=== PATIENT | male | born 1965 | race Caucasian/White ===

== ENCOUNTER 2018-05-10 12:36 | Inpatient (IN) | payer MEDICARE, OTHER ==
[2018-05-10 15:52] LABS: ADD MAN DIFF? NO
[2018-05-10 15:56] LABS: WHITE BLOOD COUNT 13.9 10^3/ul (4.8-10.8)
[2018-05-10 15:56] LABS: BASOPHIL # 0.1 10^3/ul (0.0-0.1); BASOPHILS % 0.4 % (0.0-2.0); EOSINOPHILS # 0.1 10^3/ul (0.0-0.5); EOSINOPHILS % 0.5 % (0.0-7.0); HEMATOCRIT 34.1 % (42.0-52.0); HEMOGLOBIN 11.3 g/dl (14.0-18.0); LYMPHOCYTES # 0.9 10^3/ul (0.8-2.9); LYMPHOCYTES % 6.7 % (15.0-51.0); MEAN CORPUSCULAR HEMOGLOBIN 29.7 pg (29.0-33.0); MEAN CORPUSCULAR HGB CONC 33.1 g/dl (32.0-37.0); MEAN CORPUSCULAR VOLUME 89.7 fl (82.0-101.0); MONOCYTE # 1.1 10^3/ul (0.3-0.9); MONOCYTES % 8.1 % (0.0-11.0); NEUTROPHIL # 11.7 10^3/ul (1.6-7.5); NEUTROPHILS % 83.7 % (39.0-77.0); PLATELET COUNT 200 10^3/UL (140-415); RED CELL DISTRIBUTION WIDTH 13.1 % (11.5-14.5)
[2018-05-10] MEDS ORDERED: VANCOMYCIN 1 GM (PMX) 250 ML IVPB (16:00)
[2018-05-10 16:16] LABS: ALANINE AMINOTRANSFERASE 17 IU/L (13-69); ALBUMIN 4.7 g/dl (3.3-4.9); ALBUMIN/GLOBULIN RATIO 1.14; ALKALINE PHOSPHATASE 145 IU/L (42-121); ANION GAP 25 (8-16); ASPARTATE AMINO TRANSFERASE < 8 IU/L (15-46); BILIRUBIN,INDIRECT 0.2 mg/dl (0-1.1); BILIRUBIN,TOTAL 0.2 mg/dl (0.2-1.3); BLOOD UREA NITROGEN 62 mg/dl (7-20); CALCIUM 9.1 mg/dl (8.4-10.2); CARBON DIOXIDE 26 mmol/L (21-31); CHLORIDE 92 mmol/L (97-110); CREATININE 9.64 mg/dl (0.61-1.24); GLUCOSE 165 mg/dl (70-220); INR 1.09; PROTIME 14.2 Sec (11.9-14.9); PT RATIO 1.1; SODIUM 137 mmol/L (135-144); TOTAL PROTEIN 8.8 g/dl (6.1-8.1)
[2018-05-10 16:17] LABS: PARTIAL THROMBOPLASTIN TIME 27.6 Sec (25.0-35.0)
[2018-05-10 16:29] LABS: C-REACTIVE PROTEIN 17.6 mg/dl (0.0-0.9)
[2018-05-10] MEDS ORDERED: ONDANSETRON 4 MG INJ IV (16:30)
[2018-05-10] MEDS ORDERED: ACETAMINOPHEN 325 MG TAB PO ×2 (16:30→17:00)
[2018-05-10] MEDS ORDERED: CEFEPIME 1GM/50 ML (PMX) 50 ML IVPB (17:00)
[2018-05-10] MEDS ORDERED: NACL 0.9% 3 ML SYG IV (17:00)
[2018-05-10] MEDS ORDERED: VANCOMYCIN IV PER PHARMACY XX (17:00)
[2018-05-10] MEDS ORDERED: HYDROmorphONE 0.5 MG/0.5 ML SYG IV (17:00)
[2018-05-10] MEDS ORDERED: GLUCAGON 1 MG INJ IM (17:30)
[2018-05-10] MEDS ORDERED: GLUCOSE GEL 15 GRAM TUBE BUCCAL (17:30)
[2018-05-10] MEDS ORDERED: DEXTROSE 50% 50 ML SYRINGE IV ×2 (17:30)
[2018-05-10] MEDS ORDERED: GLUCOSE GEL 15 GRAM TUBE PO ×2 (17:30)
[2018-05-10] MEDS: INSULIN ASPART [NOVOLOG] 3 ML PEN SC ×3 (18:00→21:00)
[2018-05-10] MEDS: CEFEPIME 2GM/50 ML (PMX) 50 ML IVPB (18:12)
[2018-05-10] MEDS: VANCOMYCIN 2 GM in SOD CHLORIDE 0.9% 500 ML IVPB (18:12)
[2018-05-10] MEDS: NA POLYST SULFON 15 GM/60 ML BTL PO (18:17)
[2018-05-10] MEDS: CALCIUM ACETATE 667 MG CAP PO (19:01)
[2018-05-10 19:02] LABS: ERYTHROCYTE SEDIMENTATION RATE 60 mm/Hr (0-20)
[2018-05-10] MEDS: DIPHENHYDRAMINE 50 MG INJ IV (19:03)
[2018-05-10 20:07] LABS: HEMOGLOBIN A1C 7.3 % (0-5.9)
[2018-05-10] MEDS: INSULIN GLARGINE [LANtus] 3 ML PEN SC (21:01)
[2018-05-10] MEDS: FAMOTIDINE 20 MG TAB PO (21:59)
[2018-05-10] MEDS: MINOXIDIL 2.5 MG TAB PO (22:03)
[2018-05-10 23:06] LABS: LACTIC ACID 0.8 mmol/L (0.5-2.0)
[2018-05-11 06:22] LABS: ADD MAN DIFF? NO
[2018-05-11 06:31] LABS: WHITE BLOOD COUNT 9.9 10^3/ul (4.8-10.8)
[2018-05-11 06:31] LABS: BASOPHIL # 0.1 10^3/ul (0.0-0.1); BASOPHILS % 0.6 % (0.0-2.0); EOSINOPHILS # 0.1 10^3/ul (0.0-0.5); EOSINOPHILS % 1.1 % (0.0-7.0); HEMATOCRIT 29.9 % (42.0-52.0); HEMOGLOBIN 9.9 g/dl (14.0-18.0); LYMPHOCYTES # 0.9 10^3/ul (0.8-2.9); LYMPHOCYTES % 8.8 % (15.0-51.0); MEAN CORPUSCULAR HEMOGLOBIN 29.8 pg (29.0-33.0); MEAN CORPUSCULAR HGB CONC 33.1 g/dl (32.0-37.0); MEAN CORPUSCULAR VOLUME 90.1 fl (82.0-101.0); MEAN PLATELET VOLUME 12.8 fl (7.4-10.4); MONOCYTES % 10.3 % (0.0-11.0); NEUTROPHIL # 7.8 10^3/ul (1.6-7.5); NEUTROPHILS % 78.9 % (39.0-77.0); PLATELET COUNT 179 10^3/UL (140-415); RED BLOOD COUNT 3.32 10^6/ul (4.70-6.10)
[2018-05-11 06:52] LABS: ANION GAP 24 (8-16); BLOOD UREA NITROGEN 74 mg/dl (7-20); CALCIUM 8.7 mg/dl (8.4-10.2); CARBON DIOXIDE 25 mmol/L (21-31); CHLORIDE 95 mmol/L (97-110); CREATININE 10.37 mg/dl (0.61-1.24); GLUCOSE 115 mg/dl (70-220); SODIUM 139 mmol/L (135-144)
[2018-05-11 06:54] LABS: CHOL/HDL RATIO 3.4 RATIO; CHOLESTEROL 125 mg/dl (100-200); HDL CHOLESTEROL 36 mg/dl (28-71); LDL CHOLESTEROL,CALCULATED 72 mg/dl; MAGNESIUM 2.9 mg/dl (1.7-2.5); TRIGLYCERIDES 86 mg/dl (0-149)
[2018-05-11 06:54] LABS: PHOSPHORUS 8.1 mg/dl (2.5-4.9)
[2018-05-11] MEDS ORDERED: ESMOLOL 100 MG INJ (07:00)
[2018-05-11] MEDS ORDERED: ALBUMIN HUMAN 5% 250 ML INJ (07:00)
[2018-05-11] MEDS ORDERED: ONDANSETRON 4 MG INJ (07:00)
[2018-05-11] MEDS ORDERED: METOPROLOL 5 MG INJ (07:00)
[2018-05-11] MEDS ORDERED: ALBUMIN HUMAN 25% 100 ML INJ (07:00)
[2018-05-11] MEDS ORDERED: CA CHLORIDE 10% 10 ML SYRINGE (07:00)
[2018-05-11 07:05] LABS: POTASSIUM 5.2 mmol/L (3.5-5.1)
[2018-05-11] MEDS: INSULIN ASPART [NOVOLOG] 3 ML PEN SC ×7 (07:35→21:00)
[2018-05-11] MEDS: CALCIUM ACETATE 667 MG CAP PO ×3 (07:35→17:35)
[2018-05-11] MEDS: METOPROLOL (XL) 50 MG TAB PO (08:49)
[2018-05-11] MEDS: MINOXIDIL 2.5 MG TAB PO ×2 (08:49→21:00)
[2018-05-11 10:51] LABS: HEPATITIS B SURFACE ANTIGEN NEGATIVE (NEGATIVE)
[2018-05-11 12:55] LABS: HEPATITIS B SURFACE ANTIBODY POSITIVE (NEGATIVE)
[2018-05-11] MEDS: hydrALAzine 20 MG INJ IV (14:04)
[2018-05-11] MEDS: CEFEPIME 1GM/50 ML (PMX) 50 ML IVPB (16:13)
[2018-05-11 17:51] LABS: ANION GAP 20 (8-16); BLOOD UREA NITROGEN 32 mg/dl (7-20); CALCIUM 8.9 mg/dl (8.4-10.2); CARBON DIOXIDE 26 mmol/L (21-31); CHLORIDE 99 mmol/L (97-110); CREATININE 6.33 mg/dl (0.61-1.24); GLUCOSE 87 mg/dl (70-220); POTASSIUM 4.2 mmol/L (3.5-5.1); SODIUM 141 mmol/L (135-144)
[2018-05-11] MEDS: INSULIN GLARGINE [LANtus] 3 ML PEN SC ×2 (20:00)
[2018-05-11] MEDS ORDERED: FENTAnyl 50 MCG/ML VIAL ×2 (20:27→21:07)
[2018-05-11] MEDS ORDERED: LIDOCAINE 2% (SDV) 5 ML INJ (20:28)
[2018-05-11] MEDS ORDERED: MIDAZOLAM 1 MG/ML 2 ML INJ ×2 (20:28→21:08)
[2018-05-11] MEDS ORDERED: LIDOCAINE 1% (MPF) 30 ML INJ (20:53)
[2018-05-11] MEDS ORDERED: BUPIVACAINE 0.25% (MPF) 30 ML INJ (20:53)
[2018-05-11] MEDS: FAMOTIDINE 20 MG TAB PO (21:00)
[2018-05-11] MEDS: FISH OIL 1,000 MG CAP PO (21:00)
[2018-05-11] MEDS ORDERED: PROPOFOL 20 ML (21:08)
[2018-05-11] MEDS ORDERED: METOCLOPRAMIDE 10 MG INJ (21:08)
[2018-05-11] MEDS ORDERED: CEFAZOLIN 1 GM INJ (21:08)
[2018-05-11] MEDS: POLYMYXIN/BACITRACIN 1L IRRIG (21:29)
[2018-05-11] MEDS ORDERED: ALBUMIN HUMAN 5% 250 ML (21:57)
[2018-05-11] MEDS ORDERED: PHENYLephrine 10 MG INJ (22:01)
[2018-05-11] MEDS ORDERED: PHENYLephrine (100 MCG/ML) 10ML SYG (22:21)
[2018-05-11] MEDS ORDERED: ALBUMIN HUMAN 5% 250 ML IV (22:30)
[2018-05-11] MEDS ORDERED: IPRATROPIUM (NEB) 0.5 MG/2.5 ML AMP HHN (22:30)
[2018-05-11] MEDS ORDERED: HYDROmorphONE 1 MG/5 ML IV SYRINGE IV ×2 (22:30)
[2018-05-11] MEDS ORDERED: FENTAnyl 50 MCG/ML VIAL IV ×2 (22:30)
[2018-05-11] MEDS ORDERED: DIPHENHYDRAMINE 50 MG INJ IV ×2 (22:30→23:30)
[2018-05-11] MEDS ORDERED: ONDANSETRON 4 MG INJ IV ×2 (22:30→23:30)
[2018-05-11] MEDS ORDERED: ALBUMIN HUMAN 25% 200 ML (22:35)
[2018-05-11] MEDS ORDERED: HYDROCODONE/APAP (5/325) TAB PO (23:30)
[2018-05-11] MEDS ORDERED: morphine 2 MG INJ IV (23:30)
[2018-05-11 23:32] LABS: CREATINE KINASE 82 IU/L (23-200)
[2018-05-11 23:46] LABS: CK INDEX 2.7; TROPONIN-I 0.031 ng/ml (0.000-0.120)
[2018-05-11 23:48] LABS: CK-MB 2.23 ng/ml (0.0-2.4)
[2018-05-11] MEDS: ALBUMIN HUMAN 5% 250 ML IV (23:52)
[2018-05-11] MEDS ORDERED: EPINEPHrine 0.1 MG/ML SYG (23:56)
[2018-05-12] MEDS: CALCIUM GLUCONATE 10% 1 GM in DEXTROSE 5% 100 ML IVPB (00:06)
[2018-05-12] MEDS ORDERED: NORepinephrine 8MG/250 ML (PMX 250 ML (00:16)
[2018-05-12] MEDS ORDERED: PHENYLephrine 20MG IN 250 ML 250 ML IV (00:30)
[2018-05-12] MEDS: SOD CHLORIDE 0.9% 1,000 ML IV ×2 (01:01→09:52)
[2018-05-12] MEDS: SOD CHLORIDE 0.9% 500 ML IV (01:01)
[2018-05-12] MEDS: NORepinephrine 8MG/250 ML (PMX 250 ML IV (02:00)
[2018-05-12 05:41] LABS: ADD MAN DIFF? NO
[2018-05-12 05:53] LABS: BASOPHIL # 0.1 10^3/ul (0.0-0.1); BASOPHILS % 0.6 % (0.0-2.0); EOSINOPHILS % 0.4 % (0.0-7.0); HEMATOCRIT 22.8 % (42.0-52.0); HEMOGLOBIN 7.4 g/dl (14.0-18.0); LYMPHOCYTES # 0.7 10^3/ul (0.8-2.9); LYMPHOCYTES % 7.3 % (15.0-51.0); MEAN CORPUSCULAR HEMOGLOBIN 30.3 pg (29.0-33.0); MEAN CORPUSCULAR HGB CONC 32.5 g/dl (32.0-37.0); MEAN CORPUSCULAR VOLUME 93.4 fl (82.0-101.0); MONOCYTES % 10.9 % (0.0-11.0); NEUTROPHIL # 7.2 10^3/ul (1.6-7.5); NEUTROPHILS % 80.5 % (39.0-77.0); POSITIVE DIFF @See below; RED BLOOD COUNT 2.44 10^6/ul (4.70-6.10); RED CELL DISTRIBUTION WIDTH 13.2 % (11.5-14.5)
[2018-05-12 05:53] LABS: WHITE BLOOD COUNT 8.9 10^3/ul (4.8-10.8)
[2018-05-12 06:32] LABS: ANION GAP 22 (8-16); BLOOD UREA NITROGEN 41 mg/dl (7-20); CALCIUM 8.7 mg/dl (8.4-10.2); CARBON DIOXIDE 23 mmol/L (21-31); CHLORIDE 101 mmol/L (97-110); CREATININE 7.15 mg/dl (0.61-1.24); GLUCOSE 158 mg/dl (70-220); POTASSIUM 5.1 mmol/L (3.5-5.1); SODIUM 141 mmol/L (135-144)
[2018-05-12 06:35] LABS: VANCOMYCIN,RANDOM 15.4 ug/ml
[2018-05-12 06:50] LABS: PLATELET COUNT 137 10^3/UL (140-415)
[2018-05-12] MEDS: INSULIN ASPART [NOVOLOG] 3 ML PEN SC ×7 (07:35→21:00)
[2018-05-12] MEDS: ONDANSETRON 4 MG INJ IV (08:11)
[2018-05-12] MEDS: CALCIUM ACETATE 667 MG CAP PO ×3 (08:12→17:04)
[2018-05-12] MEDS: METOPROLOL (XL) 50 MG TAB PO (08:14)
[2018-05-12] MEDS: FISH OIL 1,000 MG CAP PO ×2 (08:14→21:10)
[2018-05-12] MEDS: MINOXIDIL 2.5 MG TAB PO ×2 (08:15→21:12)
[2018-05-12] MEDS: VANCOMYCIN 1 GM 250 ML IVPB (10:51)
[2018-05-12 12:17] LABS: HEMATOCRIT 22.6 % (42.0-52.0); HEMOGLOBIN 7.5 g/dl (14.0-18.0)
[2018-05-12 12:18] LABS: IRON 20 ug/dl (35-150)
[2018-05-12 12:27] LABS: % IRON SATURATION 13 % SAT (22-52); TOTAL IRON BINDING CAPACITY 151 ug/dl (241-421)
[2018-05-12] MEDS: EPOETIN 3000 UNITS/1 ML INJ (ESRD) SC (13:25)
[2018-05-12] MEDS ORDERED: morphine LIQ (10 MG/5 ML) CUP PO (13:30)
[2018-05-12] MEDS: SOD FERRIC GLUC COMPLX 125 MG in SOD CHLORIDE 0.9% 100 ML IVPB (16:49)
[2018-05-12] MEDS: CEFEPIME 1GM/50 ML (PMX) 50 ML IVPB (17:33)
[2018-05-12] MEDS: FAMOTIDINE 20 MG TAB PO (21:09)
[2018-05-12] MEDS: INSULIN GLARGINE [LANtus] 3 ML PEN SC (21:33)
[2018-05-13] MEDS: HYDROCODONE/APAP (5/325) TAB PO (04:33)
[2018-05-13 05:10] LABS: ADD MAN DIFF? NO
[2018-05-13 05:16] LABS: WHITE BLOOD COUNT 6.8 10^3/ul (4.8-10.8)
[2018-05-13 05:16] LABS: ABNORMAL IP MESSAGE 1; BASOPHIL # 0.1 10^3/ul (0.0-0.1); BASOPHILS % 0.7 % (0.0-2.0); EOSINOPHILS # 0.2 10^3/ul (0.0-0.5); EOSINOPHILS % 2.4 % (0.0-7.0); HEMATOCRIT 20.8 % (42.0-52.0); LYMPHOCYTES # 0.7 10^3/ul (0.8-2.9); LYMPHOCYTES % 10.6 % (15.0-51.0); MEAN CORPUSCULAR HEMOGLOBIN 29.7 pg (29.0-33.0); MEAN CORPUSCULAR HGB CONC 32.7 g/dl (32.0-37.0); MEAN CORPUSCULAR VOLUME 90.8 fl (82.0-101.0); MEAN PLATELET VOLUME 12.2 fl (7.4-10.4); MONOCYTES % 14.5 % (0.0-11.0); NEUTROPHIL # 4.8 10^3/ul (1.6-7.5); NEUTROPHILS % 71.5 % (39.0-77.0); PLATELET COUNT 155 10^3/UL (140-415); POSITIVE DIFF @See below; RED BLOOD COUNT 2.29 10^6/ul (4.70-6.10)
[2018-05-13 05:27] LABS: ANION GAP 21 (8-16); BLOOD UREA NITROGEN 50 mg/dl (7-20); CALCIUM 8.7 mg/dl (8.4-10.2); CARBON DIOXIDE 23 mmol/L (21-31); CHLORIDE 100 mmol/L (97-110); CREATININE 9.24 mg/dl (0.61-1.24); GLUCOSE 104 mg/dl (70-220); POTASSIUM 4.8 mmol/L (3.5-5.1); SODIUM 139 mmol/L (135-144)
[2018-05-13 05:42] LABS: HEMOGLOBIN 6.8 g/dl (14.0-18.0)
[2018-05-13 05:43] LABS: PATH REVIEW? YES
[2018-05-13] MEDS: INSULIN ASPART [NOVOLOG] 3 ML PEN SC ×7 (07:50→22:20)
[2018-05-13] MEDS: FISH OIL 1,000 MG CAP PO ×2 (08:57→22:16)
[2018-05-13] MEDS: METOPROLOL (XL) 50 MG TAB PO (08:57)
[2018-05-13] MEDS: CALCIUM ACETATE 667 MG CAP PO ×3 (08:57→18:22)
[2018-05-13] MEDS: MINOXIDIL 2.5 MG TAB PO ×2 (08:57→22:17)
[2018-05-13] MEDS: CEFEPIME 1GM/50 ML (PMX) 50 ML IVPB (16:29)
[2018-05-13 18:41] LABS: IMMEDIATE SPIN CROSSMATCH 1 1
[2018-05-13] MEDS: SOD CHLORIDE 0.9% 250 ML IV* (18:58)
[2018-05-13] MEDS: SOD FERRIC GLUC COMPLX 125 MG in SOD CHLORIDE 0.9% 100 ML IVPB (22:16)
[2018-05-13] MEDS: FAMOTIDINE 20 MG TAB PO (22:18)
[2018-05-13] MEDS: EPOETIN 3000 UNITS/1 ML INJ (ESRD) SC (22:28)
[2018-05-13] MEDS: INSULIN GLARGINE [LANtus] 3 ML PEN SC (22:34)
[2018-05-14 05:02] LABS: ADD MAN DIFF? NO
[2018-05-14 05:07] LABS: BASOPHIL # 0.1 10^3/ul (0.0-0.1); BASOPHILS % 0.9 % (0.0-2.0); EOSINOPHILS # 0.3 10^3/ul (0.0-0.5); EOSINOPHILS % 3.4 % (0.0-7.0); HEMATOCRIT 25.2 % (42.0-52.0); HEMOGLOBIN 8.5 g/dl (14.0-18.0); LYMPHOCYTES # 0.7 10^3/ul (0.8-2.9); MEAN CORPUSCULAR HEMOGLOBIN 30.6 pg (29.0-33.0); MEAN CORPUSCULAR HGB CONC 33.7 g/dl (32.0-37.0); MEAN CORPUSCULAR VOLUME 90.6 fl (82.0-101.0); MEAN PLATELET VOLUME 11.8 fl (7.4-10.4); MONOCYTE # 0.8 10^3/ul (0.3-0.9); MONOCYTES % 9.8 % (0.0-11.0); NEUTROPHILS % 76.6 % (39.0-77.0); PLATELET COUNT 181 10^3/UL (140-415); RED BLOOD COUNT 2.78 10^6/ul (4.70-6.10); RED CELL DISTRIBUTION WIDTH 12.7 % (11.5-14.5)
[2018-05-14 05:07] LABS: WHITE BLOOD COUNT 7.9 10^3/ul (4.8-10.8)
[2018-05-14 05:35] LABS: ANION GAP 21 (8-16); BLOOD UREA NITROGEN 31 mg/dl (7-20); CALCIUM 9.3 mg/dl (8.4-10.2); CARBON DIOXIDE 27 mmol/L (21-31); CHLORIDE 96 mmol/L (97-110); CREATININE 6.05 mg/dl (0.61-1.24); GLUCOSE 136 mg/dl (70-220); POTASSIUM 4.7 mmol/L (3.5-5.1); SODIUM 139 mmol/L (135-144)
[2018-05-14] MEDS: INSULIN ASPART [NOVOLOG] 3 ML PEN SC ×7 (07:50→20:37)
[2018-05-14] MEDS: METOPROLOL (XL) 50 MG TAB PO (08:02)
[2018-05-14] MEDS: CALCIUM ACETATE 667 MG CAP PO ×3 (08:02→17:27)
[2018-05-14] MEDS: MINOXIDIL 2.5 MG TAB PO ×2 (08:03→20:33)
[2018-05-14] MEDS: FISH OIL 1,000 MG CAP PO ×2 (08:03→20:33)
[2018-05-14] MEDS: LIDOCAINE 1% (MPF) 5 ML VIAL SC (15:30)
[2018-05-14] MEDS: SOD FERRIC GLUC COMPLX 125 MG in SOD CHLORIDE 0.9% 100 ML IVPB (17:20)
[2018-05-14] MEDS: NIFEdipine (XL) 60 MG TAB PO (18:03)
[2018-05-14] MEDS: CEFEPIME 1GM/50 ML (PMX) 50 ML IVPB (19:23)
[2018-05-14] MEDS: FAMOTIDINE 20 MG TAB PO (20:32)
[2018-05-14] MEDS: INSULIN GLARGINE [LANtus] 3 ML PEN SC (20:37)
[2018-05-14] MEDS: HYDROCODONE/APAP (5/325) TAB PO (23:20)
[2018-05-15 05:15] LABS: ADD MAN DIFF? NO
[2018-05-15 05:27] LABS: BASOPHIL # 0.1 10^3/ul (0.0-0.1); EOSINOPHILS # 0.4 10^3/ul (0.0-0.5); EOSINOPHILS % 4.8 % (0.0-7.0); HEMATOCRIT 24.1 % (42.0-52.0); LYMPHOCYTES # 0.9 10^3/ul (0.8-2.9); LYMPHOCYTES % 11.5 % (15.0-51.0); MEAN CORPUSCULAR HEMOGLOBIN 30.5 pg (29.0-33.0); MEAN CORPUSCULAR HGB CONC 33.2 g/dl (32.0-37.0); MEAN PLATELET VOLUME 12.1 fl (7.4-10.4); MONOCYTES % 12.4 % (0.0-11.0); NEUTROPHIL # 5.5 10^3/ul (1.6-7.5); NEUTROPHILS % 69.9 % (39.0-77.0); PLATELET COUNT 212 10^3/UL (140-415); RED BLOOD COUNT 2.62 10^6/ul (4.70-6.10); RED CELL DISTRIBUTION WIDTH 12.9 % (11.5-14.5)
[2018-05-15 05:27] LABS: WHITE BLOOD COUNT 7.9 10^3/ul (4.8-10.8)
[2018-05-15 05:37] LABS: VANCOMYCIN,RANDOM 17.3 ug/ml
[2018-05-15 06:00] LABS: ANION GAP 20 (8-16); BLOOD UREA NITROGEN 44 mg/dl (7-20); CALCIUM 9.3 mg/dl (8.4-10.2); CARBON DIOXIDE 25 mmol/L (21-31); CHLORIDE 100 mmol/L (97-110); CREATININE 8.23 mg/dl (0.61-1.24); GLUCOSE 118 mg/dl (70-220); POTASSIUM 4.9 mmol/L (3.5-5.1); SODIUM 140 mmol/L (135-144)
[2018-05-15] MEDS: INSULIN ASPART [NOVOLOG] 3 ML PEN SC ×7 (07:50→21:00)
[2018-05-15] MEDS: CALCIUM ACETATE 667 MG CAP PO ×3 (08:36→17:54)
[2018-05-15] MEDS: NIFEdipine (XL) 60 MG TAB PO (09:00)
[2018-05-15] MEDS: MINOXIDIL 2.5 MG TAB PO ×2 (14:08→21:17)
[2018-05-15] MEDS: FISH OIL 1,000 MG CAP PO ×2 (14:08→21:14)
[2018-05-15] MEDS: METOPROLOL (XL) 50 MG TAB PO (14:09)
[2018-05-15] MEDS: SOD FERRIC GLUC COMPLX 125 MG in SOD CHLORIDE 0.9% 100 ML IVPB (16:36)
[2018-05-15] MEDS: EPOETIN 3000 UNITS/1 ML INJ (ESRD) SC (16:43)
[2018-05-15] MEDS: CEFEPIME 1GM/50 ML (PMX) 50 ML IVPB (17:54)
[2018-05-15] MEDS: VANCOMYCIN 1 GM 250 ML IVPB (19:04)
[2018-05-15] MEDS: INSULIN GLARGINE [LANtus] 3 ML PEN SC (20:00)
[2018-05-15] MEDS: FAMOTIDINE 20 MG TAB PO (21:14)
== END 2018-05-15 21:25 | disposition home health service (06) | DRG 492 ==
LOC: MS3 16:03 → ICU 05-11 23:30 → E/R 12:36 → ICU 05-12 01:57 → TEL 05-11 18:08 → MS1 05-12 18:53
PROC: 0SPG04Z Removal of Internal Fixation Device from Left Ankle Joint, Open Approach (ICD-10-PCS; principal; 2018-05-11 09:07)
PROC: 5A1D70Z Performance of Urinary Filtration, Intermittent, Less than 6 Hours Per Day (ICD-10-PCS; 2018-05-11 21:06)
PROC: 5A1D70Z Performance of Urinary Filtration, Intermittent, Less than 6 Hours Per Day (ICD-10-PCS; 2018-05-11 21:06)
PROC: 5A1D70Z Performance of Urinary Filtration, Intermittent, Less than 6 Hours Per Day (ICD-10-PCS; 2018-05-11 21:06)
PROC: 30233N1 Transfusion of Nonautologous Red Blood Cells into Peripheral Vein, Percutaneous Approach (ICD-10-PCS; 2018-05-11 21:06)
DX: S92.102D Unspecified fracture of left talus, subsequent encounter for fracture with routine healing (principal); N18.6 End stage renal disease; T84.213A Breakdown (mechanical) of internal fixation device of bones of foot and toes, initial encounter; M86.172 Other acute osteomyelitis, left ankle and foot; L97.429 Non-pressure chronic ulcer of left heel and midfoot with unspecified severity; I12.0 Hypertensive chronic kidney disease with stage 5 chronic kidney disease or end stage renal disease; I16.0 Hypertensive urgency; E11.621 Type 2 diabetes mellitus with foot ulcer; I95.81 Postprocedural hypotension; D63.1 Anemia in chronic kidney disease; D50.9 Iron deficiency anemia, unspecified; E11.22 Type 2 diabetes mellitus with diabetic chronic kidney disease; E11.42 Type 2 diabetes mellitus with diabetic polyneuropathy; E87.5 Hyperkalemia; I25.10 Atherosclerotic heart disease of native coronary artery without angina pectoris; G89.4 Chronic pain syndrome; E78.5 Hyperlipidemia, unspecified; W01.0XXD Fall on same level from slipping, tripping and stumbling without subsequent striking against object, subsequent encounter; Z99.2 Dependence on renal dialysis; Z79.4 Long term (current) use of insulin; Z79.82 Long term (current) use of aspirin; Z89.421 Acquired absence of other right toe(s)
CPT/HCPCS: 36415; 36430; 71045; 73600-LT; 73630-LT; 80048; 80053; 80061; 80202; 82306; 82550; 82553; 82652; 82962; 83036; 83540; 83605; 83735; 84100; 84439; 84443; 84484; 85014; 85018; 85025; 85610; 85651; 85730; 86140; 86706; 86850; 86900; 86901; 86920; 87040; 87070; 87081; 87102; 87116; 87340; 88300; 90935; 93005; 93306; 93922; 94660; 96372; 96374; 96375; 99285-25

== ENCOUNTER 2018-07-15 05:29 | Observation (INO) | payer MEDICARE, OTHER ==
[2018-07-15] MEDS ORDERED: NACL 0.9% 3 ML SYG IV (06:00)
[2018-07-15] MEDS ORDERED: ASPIRIN 325 MG TAB PO (06:00)
[2018-07-15] MEDS ORDERED: MIDAZOLAM 1 MG/ML 2 ML INJ IV (06:00)
[2018-07-15 06:44] LABS: ADD MAN DIFF? NO
[2018-07-15 06:58] LABS: WHITE BLOOD COUNT 6.3 10^3/ul (4.8-10.8)
[2018-07-15 06:58] LABS: BASOPHIL # 0.1 10^3/ul (0.0-0.1); BASOPHILS % 1.3 % (0.0-2.0); EOSINOPHILS # 0.1 10^3/ul (0.0-0.5); EOSINOPHILS % 1.9 % (0.0-7.0); HEMATOCRIT 29.9 % (42.0-52.0); HEMOGLOBIN 9.5 g/dl (14.0-18.0); LYMPHOCYTES # 1.2 10^3/ul (0.8-2.9); LYMPHOCYTES % 18.8 % (15.0-51.0); MEAN CORPUSCULAR HEMOGLOBIN 27.7 pg (29.0-33.0); MEAN CORPUSCULAR HGB CONC 31.8 g/dl (32.0-37.0); MEAN CORPUSCULAR VOLUME 87.2 fl (82.0-101.0); MEAN PLATELET VOLUME 12.6 fl (7.4-10.4); MONOCYTE # 0.8 10^3/ul (0.3-0.9); MONOCYTES % 12.6 % (0.0-11.0); NEUTROPHIL # 4.1 10^3/ul (1.6-7.5); NEUTROPHILS % 65.1 % (39.0-77.0); PLATELET COUNT 174 10^3/UL (140-415); RED BLOOD COUNT 3.43 10^6/ul (4.70-6.10); RED CELL DISTRIBUTION WIDTH 14.6 % (11.5-14.5)
[2018-07-15 07:00] LABS: HOLD TRANSMISSIONS 1
[2018-07-15] MEDS ORDERED: MIDAZOLAM 1 MG/ML 2 ML INJ (07:14)
[2018-07-15] MEDS ORDERED: IOHEXOL 350MG/ML 50 ML BTL (07:14)
[2018-07-15] MEDS ORDERED: NITROGLYCERIN (IC) 100 MCG/ML INJ (07:14)
[2018-07-15] MEDS ORDERED: LIDOCAINE 1% (MDV) 20 ML INJ (07:14)
[2018-07-15] MEDS ORDERED: HEPARIN 1000 UNITS/ML 10 ML INJ (07:14)
[2018-07-15] MEDS ORDERED: VERAPAMIL 5 MG INJ (07:14)
[2018-07-15] MEDS ORDERED: IODIXANOL LOCM 100 ML BTL (07:14)
[2018-07-15] MEDS ORDERED: FENTAnyl 50 MCG/ML VIAL (07:14)
[2018-07-15] MEDS ORDERED: IODIXANOL LOCM 50 ML BTL (07:14)
[2018-07-15 07:26] LABS: ANION GAP 13 (8-16); BLOOD UREA NITROGEN 20 mg/dl (7-20); CALCIUM 9.6 mg/dl (8.4-10.2); CARBON DIOXIDE 36 mmol/L (21-31); CHLORIDE 98 mmol/L (97-110); CREATININE 4.11 mg/dl (0.61-1.24); GLUCOSE 155 mg/dl (70-220); POTASSIUM 4.7 mmol/L (3.5-5.1); SODIUM 142 mmol/L (135-144)
[2018-07-15 07:27] LABS: INR 1.04; PROTIME 13.7 Sec (11.9-14.9); PT RATIO 1.1
[2018-07-15 07:28] LABS: PARTIAL THROMBOPLASTIN TIME 33.3 Sec (25.0-35.0)
[2018-07-15] MEDS ORDERED: DIPHENHYDRAMINE 50 MG INJ (07:48)
[2018-07-15] MEDS ORDERED: BIVALIRUDIN 250MG /NS 50 ML 50 ML IVPB (07:56)
[2018-07-15] MEDS ORDERED: TICAGRELOR 90 MG TABLET (08:08)
[2018-07-15] MEDS ORDERED: ASPIRIN 81 MG TAB (08:09)
[2018-07-15] MEDS ORDERED: hydrALAzine 20 MG INJ (08:29)
[2018-07-15] MEDS ORDERED: hydrALAzine 20 MG INJ IV (10:00)
[2018-07-15] MEDS ORDERED: HYDROCODONE/APAP (5/325) TAB PO (10:00)
[2018-07-15] MEDS: INSULIN ASPART [NOVOLOG] 3 ML PEN SC ×3 (10:52→21:00)
[2018-07-15] MEDS ORDERED: GLUCAGON 1 MG INJ IM (12:00)
[2018-07-15] MEDS ORDERED: GLUCOSE GEL 15 GRAM TUBE BUCCAL (12:00)
[2018-07-15] MEDS ORDERED: DEXTROSE 50% 50 ML SYRINGE IV ×2 (12:00)
[2018-07-15] MEDS ORDERED: GLUCOSE GEL 15 GRAM TUBE PO ×2 (12:00)
[2018-07-15] MEDS: METOPROLOL (XL) 50 MG TAB PO (12:52)
[2018-07-15] MEDS: EPOETIN 10000 UNITS/1 ML INJ (ESRD) SC (12:53)
[2018-07-15] MEDS: CALCIUM ACETATE 667 MG CAP PO ×2 (14:14→17:20)
[2018-07-15 16:19] LABS: HEPATITIS B SURFACE ANTIGEN NEGATIVE (NEGATIVE)
[2018-07-15] MEDS: ATORVASTATIN 80 MG TAB PO (22:19)
[2018-07-15] MEDS: TICAGRELOR 90 MG TABLET PO (22:21)
[2018-07-16] MEDS: ACCU-CHEK XX (02:00)
[2018-07-16 04:54] LABS: ADD MAN DIFF? NO
[2018-07-16 05:02] LABS: BASOPHIL # 0.1 10^3/ul (0.0-0.1); BASOPHILS % 0.9 % (0.0-2.0); EOSINOPHILS # 0.2 10^3/ul (0.0-0.5); EOSINOPHILS % 2.6 % (0.0-7.0); HEMATOCRIT 28.2 % (42.0-52.0); LYMPHOCYTES # 0.9 10^3/ul (0.8-2.9); LYMPHOCYTES % 13.5 % (15.0-51.0); MEAN CORPUSCULAR HEMOGLOBIN 27.6 pg (29.0-33.0); MEAN CORPUSCULAR HGB CONC 31.9 g/dl (32.0-37.0); MEAN CORPUSCULAR VOLUME 86.5 fl (82.0-101.0); MEAN PLATELET VOLUME 12.4 fl (7.4-10.4); MONOCYTE # 0.7 10^3/ul (0.3-0.9); MONOCYTES % 9.8 % (0.0-11.0); NEUTROPHIL # 5.1 10^3/ul (1.6-7.5); NEUTROPHILS % 73.1 % (39.0-77.0); PLATELET COUNT 176 10^3/UL (140-415); RED BLOOD COUNT 3.26 10^6/ul (4.70-6.10); RED CELL DISTRIBUTION WIDTH 14.6 % (11.5-14.5)
[2018-07-16 05:28] LABS: ANION GAP 13 (8-16); BLOOD UREA NITROGEN 13 mg/dl (7-20); CALCIUM 9.4 mg/dl (8.4-10.2); CARBON DIOXIDE 34 mmol/L (21-31); CHLORIDE 97 mmol/L (97-110); CREATININE 3.28 mg/dl (0.61-1.24); GLUCOSE 151 mg/dl (70-220); MAGNESIUM 2.2 mg/dl (1.7-2.5); PHOSPHORUS 3.8 mg/dl (2.5-4.9); POTASSIUM 4.5 mmol/L (3.5-5.1); SODIUM 139 mmol/L (135-144)
[2018-07-16] MEDS: INSULIN ASPART [NOVOLOG] 3 ML PEN SC (07:35)
[2018-07-16] MEDS: CALCIUM ACETATE 667 MG CAP PO (07:37)
[2018-07-16] MEDS ORDERED: NON-FORMULARY/PATIENT OWN MED (Ergocalciferol (Vitamin D2) (Vitamin D2) 2,000 UNIT) PO (09:00)
[2018-07-16] MEDS: ASPIRIN 81 MG TAB PO (09:11)
[2018-07-16] MEDS: TICAGRELOR 90 MG TABLET PO (09:11)
[2018-07-16] MEDS: METOPROLOL (XL) 50 MG TAB PO (09:12)
[2018-07-16] MEDS: ERGOCALCIFEROL (8000 UNITS/ML PO SYG) PO (09:12)
== END 2018-07-16 10:55 | disposition home or self-care (01) ==
LOC: SDS 05:29 → ICU 09:49
PROVIDERS: Internal Medicine Interventional Cardiology
DX: I25.10 Atherosclerotic heart disease of native coronary artery without angina pectoris (principal); E78.5 Hyperlipidemia, unspecified; E11.22 Type 2 diabetes mellitus with diabetic chronic kidney disease; I12.0 Hypertensive chronic kidney disease with stage 5 chronic kidney disease or end stage renal disease; N18.6 End stage renal disease; Z99.2 Dependence on renal dialysis; Z95.5 Presence of coronary angioplasty implant and graft; Z87.891 Personal history of nicotine dependence; M86.8X7 Other osteomyelitis, ankle and foot; D64.9 Anemia, unspecified; E83.9 Disorder of mineral metabolism, unspecified
CPT/HCPCS: 80048; 82962; 83735; 84100; 85025; 85610; 85730; 87081; 87340; 90935; 92929; 93458